=== PATIENT | female | born 1995 | race Caucasian/White ===

== ENCOUNTER 2018-09-29 22:32 | Emergency (ER) | payer OTHER ==
[~2018-09-29] VITALS: Ht 170.2 cm; Wt 80.0 kg
[2018-09-29 22:33] VITALS: BP 122/79
[2018-09-29] MEDS ORDERED: IBUPROFEN 200 MG TABLET ONE (22:51)
[2018-09-29] MEDS ORDERED: IBUPROFEN 200 MG TABLET PO ONE (23:00)
== END 2018-09-30 01:04 | disposition home or self-care (01) ==
LOC: ED 09-30 00:20
DX: S92.315A Nondisplaced fracture of first metatarsal bone, left foot, initial encounter for closed fracture (principal); W20.8XXA Other cause of strike by thrown, projected or falling object, initial encounter; Y93.89 Activity, other specified; Y92.89 Other specified places as the place of occurrence of the external cause; Y99.8 Other external cause status
CPT/HCPCS: 29515; 99283